=== PATIENT | female | born 1980 | race African-American/Black ===

== ENCOUNTER 2019-05-22 13:50 | Inpatient (IN) | payer MEDICAID, OTHER ==
[~2019-05-22] VITALS: Ht 167.6 cm; Wt 62.3 kg
[~2019-05-22 13:50] MED LIST: NO MEDS
[2019-05-22] MEDS ORDERED: LORazepam 2 MG/ML VIAL IM ONE (15:00)
[2019-05-22] MEDS ORDERED: HALOPERIDOL LACTATE 5 MG/ML VIAL IM ONE (15:00)
[2019-05-22 16:33] LABS: BASOPHILS % (AUTO) 0.8 % (0.0-2.0); EOSINOPHILS % (AUTO) 1.7 % (1.0-6.0); HEMATOCRIT 27.7 % (36-46); HEMOGLOBIN 8.3 g/dL (12.0-16.0); LYMPHOCYTES # (AUTO) 1.7 K/uL (1.0-4.8); LYMPHOCYTES % (AUTO) 30.2 % (22.0-44.0); MEAN CORPUSCULAR HEMOGLOBIN 20.8 pg (26.0-34.0); MEAN CORPUSCULAR VOLUME 69 fL (80-100); MONOCYTES # (AUTO) 0.3 K/uL (0.1-1.0); MONOCYTES % (AUTO) 5.7 % (2.0-9.0); NEUTROPHILS # (AUTO) 3.6 K/uL (1.8-7.7); NEUTROPHILS % (AUTO) 61.6 % (40.0-70.0); PLATELET COUNT (AUTO) 275 K/uL (150-450); RED BLOOD CELL COUNT(AUTO) 4.01 MIL/uL (4.00-5.20); RED CELL DISTRIBUTION WIDTH 22.8 % (11.5-14.5)
[2019-05-22 16:34] LABS: ANION GAP 15 mmol/L (8-16); CALCIUM, TOTAL 8.9 mg/dL (8.8-10.5); CARBON DIOXIDE 21 mmol/L (22-29); CHLORIDE 109 mmol/L (98-107); CREATININE 0.75 mg/dL (0.60-1.30); GLOMERULAR FILTR. RATE CALC > 60 mL/min (>60); GLUCOSE,RANDOM 93 mg/dL (70-110); POTASSIUM 3.2 mmol/L (3.5-5.1); SODIUM SERUM 145 mmol/L (136-145); UREA NITROGEN, BLOOD 9 mg/dL (7-18)
[2019-05-22 16:39] LABS: ALANINE AMINOTRANSFERASE 10 U/L (12-78); ALBUMIN 3.8 g/dL (3.4-5.0); ALKALINE PHOSPHATASE 56 U/L (46-116); ASPARTATE AMINOTRANSFERASE 15 U/L (15-37); BILIRUBIN,TOTAL 0.3 mg/dL (0.1-1.0); TOTAL PROTEIN, SERUM 6.9 g/dL (6.4-8.2)
[2019-05-23] MEDS ORDERED: LORazepam 2 MG TABLET PO PRN (02:30)
[2019-05-23] MEDS ORDERED: HALOPERIDOL 5 MG TABLET PO PRN (02:30)
[2019-05-23] MEDS ORDERED: IBUPROFEN 400 MG TABLET PO PRN (07:15)
[2019-05-23] MEDS ORDERED: ONDANSETRON HCL 4 MG TABLET PO PRN (07:15)
[2019-05-23] MEDS ORDERED: ALBUTEROL SULFATE HFA 90 MCG/PUFF 8 GM INHALER IH PRN (07:15)
[2019-05-23] MEDS ORDERED: MAGNESIUM HYDROXIDE SUSPENSION 30 ML UDCUP PO PRN (07:15)
[2019-05-23] MEDS ORDERED: CloNIDine HCL 0.1 MG TABLET PO PRN (07:15)
[2019-05-23] MEDS ORDERED: MAG HYDROX/AL HYDROX/SIMETH ES 30 ML SUSPENSION UDCUP PO PRN (07:15)
[2019-05-23] MEDS ORDERED: ACETAMINOPHEN 325 MG TABLET PO PRN (07:15)
[2019-05-23] MEDS ORDERED: NICOTINE 14 MG/24 HOUR PATCH TD PRN (07:15)
[2019-05-23] MEDS ORDERED: PETROLATUM,WHITE 28 GM JELLY TP PRN (07:15)
[2019-05-23] MEDS ORDERED: LOPERAMIDE HCL 2 MG CAPSULE PO PRN (07:15)
[2019-05-23] MEDS ORDERED: GuaiFENesin/D-METHORPHAN [SUGAR-FREE] 200-20MG/10 ML SYRUP UDCUP PO PRN (07:15)
[2019-05-23] MEDS ORDERED: DOCUSATE SODIUM 100 MG CAPSULE PO PRN (07:15)
[2019-05-23 07:16] VITALS: BP 131/88
[2019-05-23 08:25] VITALS: BP 110/61
[2019-05-23] MEDS ORDERED: POTASSIUM CHLORIDE 20 MEQ ER TABLET PO ONE (09:15)
[2019-05-23 16:28] VITALS: BP 119/76
[2019-05-23] MEDS: BENZTROPINE MESYLATE 1 MG TABLET PO SCH (16:58)
[2019-05-23] MEDS: FERROUS SULFATE 325 MG EC TABLET PO SCH ×2 (16:59→21:00)
[2019-05-23] MEDS: RisperiDONE 2 MG TABLET PO SCH (16:59)
[2019-05-24 00:15] VITALS: BP 122/80
[2019-05-24] MEDS: FERROUS SULFATE 325 MG EC TABLET PO SCH ×4 (06:49→20:52)
[2019-05-24] MEDS: BENZTROPINE MESYLATE 1 MG TABLET PO SCH ×2 (08:55→16:39)
[2019-05-24] MEDS: RisperiDONE 2 MG TABLET PO SCH ×2 (08:55→16:39)
[2019-05-24 09:10] LABS: HEMOGLOBIN A1C 5.4 % (4.5-6.2)
[2019-05-24 09:20] LABS: CHOL/HDL RATIO 2.2 (3.9-5.7); POTASSIUM 4.3 mmol/L (3.5-5.1); THYROID STIMULATING HORMONE 0.59 uIU/mL (0.36-3.74)
[2019-05-24 16:26] VITALS: BP 142/90
[2019-05-24] MEDS: ZOLPIDEM TARTRATE 10 MG TABLET PO PRN (20:53)
[2019-05-25] MEDS: FERROUS SULFATE 325 MG EC TABLET PO SCH ×4 (07:00→20:58)
[2019-05-25] MEDS: BENZTROPINE MESYLATE 1 MG TABLET PO SCH ×2 (09:00→17:00)
[2019-05-25] MEDS: RisperiDONE 2 MG TABLET PO SCH ×2 (09:00→17:00)
[2019-05-25 16:12] VITALS: BP 135/84
[2019-05-25] MEDS: ZOLPIDEM TARTRATE 10 MG TABLET PO PRN (20:44)
[2019-05-26 01:19] VITALS: BP 128/81
[2019-05-26] MEDS: FERROUS SULFATE 325 MG EC TABLET PO SCH ×2 (07:12→12:00)
[2019-05-26 08:31] VITALS: BP 123/74
[2019-05-26] MEDS: RisperiDONE 2 MG TABLET PO SCH (09:00)
[2019-05-26] MEDS: BENZTROPINE MESYLATE 1 MG TABLET PO SCH (09:00)
== END 2019-05-26 14:18 | disposition left against medical advice (07) | DRG 750 ==
LOC: EMS 13:51 → B3A 05-23 03:52 → EMS 05-23 04:12 → B3A 05-26 00:57
PROVIDERS: ADMIT Psychiatry & Neurology Child & Adolescent Psychiatry; ATTEND Psychiatry & Neurology Child & Adolescent Psychiatry
DX: F20.0 Paranoid schizophrenia (principal); D64.9 Anemia, unspecified; E87.6 Hypokalemia; F41.9 Anxiety disorder, unspecified; F17.210 Nicotine dependence, cigarettes, uncomplicated; F10.10 Alcohol abuse, uncomplicated; R10.13 Epigastric pain; F19.10 Other psychoactive substance abuse, uncomplicated; Z53.21 Procedure and treatment not carried out due to patient leaving prior to being seen by health care provider; Z71.6 Tobacco abuse counseling; Y90.9 Presence of alcohol in blood, level not specified
CPT/HCPCS: 83036; 84132; 84443; 96372; 99291; G0480; J1630; J2060

== ENCOUNTER 2019-08-09 17:00 | Inpatient (IN) | payer MEDICAID ==
[~2019-08-09] VITALS: Ht 162.6 cm; Wt 64.9 kg
[2019-08-09] MEDS ORDERED: LORazepam 2 MG TABLET PO PRN (19:00)
[2019-08-09] MEDS ORDERED: ZOLPIDEM TARTRATE 10 MG TABLET PO PRN (19:00)
[2019-08-09] MEDS ORDERED: HALOPERIDOL 5 MG TABLET PO PRN (19:00)
[2019-08-09] MEDS ORDERED: OMEPRAZOLE 20 MG CAPSULE PO PRN (20:45)
[2019-08-09] MEDS ORDERED: ONDANSETRON HCL 4 MG TABLET PO PRN (20:45)
[2019-08-09] MEDS ORDERED: DOCUSATE SODIUM 100 MG CAPSULE PO PRN (20:45)
[2019-08-09] MEDS ORDERED: BENZOCAINE/MENTHOL LOZENGE MM PRN (20:45)
[2019-08-09] MEDS ORDERED: BACITRACIN 28.4 GM OINTMENT TP PRN (20:45)
[2019-08-09] MEDS ORDERED: CloNIDine HCL 0.1 MG TABLET PO PRN (20:45)
[2019-08-09] MEDS ORDERED: ALBUTEROL SULFATE HFA 90 MCG/PUFF 8 GM INHALER IH PRN (20:45)
[2019-08-09] MEDS ORDERED: PETROLATUM,WHITE 28 GM JELLY TP PRN (20:45)
[2019-08-09] MEDS ORDERED: MAGNESIUM HYDROXIDE SUSPENSION 30 ML UDCUP PO PRN (20:45)
[2019-08-09] MEDS ORDERED: IBUPROFEN 600 MG TABLET PO PRN (20:45)
[2019-08-09] MEDS ORDERED: LOPERAMIDE HCL 2 MG CAPSULE PO PRN (20:45)
[2019-08-09] MEDS ORDERED: ACETAMINOPHEN 325 MG TABLET PO PRN (20:45)
[2019-08-09] MEDS ORDERED: MAG HYDROX/AL HYDROX/SIMETH ES 30 ML SUSPENSION UDCUP PO PRN (20:45)
[2019-08-09] MEDS ORDERED: INFLUENZA VIRUS VACCINE QVS 2019-20 (3YR+)/PF 60 MCG/0.5 ML SYRINGE IM ONE (21:00)
[2019-08-10 08:14] VITALS: BP 145/79
[2019-08-10] MEDS: BENZTROPINE MESYLATE 1 MG TABLET PO SCH ×2 (08:18→16:45)
[2019-08-10] MEDS: RisperiDONE 2 MG TABLET PO SCH ×2 (08:19→16:45)
[2019-08-11 08:27] VITALS: BP 129/83
[2019-08-11] MEDS: RisperiDONE 2 MG TABLET PO SCH ×2 (09:00→17:00)
[2019-08-11] MEDS: BENZTROPINE MESYLATE 1 MG TABLET PO SCH ×2 (09:00→17:00)
[2019-08-11 16:45] VITALS: BP 104/70
[2019-08-12] MEDS: RisperiDONE 2 MG TABLET PO SCH ×3 (09:00→17:00)
[2019-08-12] MEDS: BENZTROPINE MESYLATE 1 MG TABLET PO SCH ×3 (09:00→17:00)
[2019-08-13 06:33] VITALS: BP 107/69
[2019-08-13] MEDS: BENZTROPINE MESYLATE 1 MG TABLET PO SCH ×2 (09:00→16:47)
[2019-08-13] MEDS: RisperiDONE 2 MG TABLET PO SCH ×2 (09:00→16:47)
[2019-08-13 09:08] VITALS: BP 109/67
[2019-08-13 16:32] VITALS: BP 130/75
[2019-08-14] MEDS: RisperiDONE 2 MG TABLET PO SCH ×2 (08:06→16:30)
[2019-08-14] MEDS: BENZTROPINE MESYLATE 1 MG TABLET PO SCH ×2 (08:06→16:30)
[2019-08-14 16:21] VITALS: BP 141/87
[2019-08-15] MEDS: BENZTROPINE MESYLATE 1 MG TABLET PO SCH ×2 (09:00→17:00)
[2019-08-15] MEDS: RisperiDONE 2 MG TABLET PO SCH ×2 (09:00→17:00)
[2019-08-15 16:32] VITALS: BP 146/84
[2019-08-16 06:13] VITALS: BP 131/72
[2019-08-16] MEDS: BENZTROPINE MESYLATE 1 MG TABLET PO SCH ×2 (08:29→17:00)
[2019-08-16] MEDS: RisperiDONE 2 MG TABLET PO SCH ×2 (08:29→17:00)
[2019-08-16 17:01] VITALS: BP 122/77
[2019-08-17 08:16] VITALS: BP 137/90
[2019-08-17] MEDS: RisperiDONE 2 MG TABLET PO SCH (08:17)
[2019-08-17] MEDS: BENZTROPINE MESYLATE 1 MG TABLET PO SCH (08:17)
[2019-08-17] MEDS ORDERED: BENZ1TAB10 PO (09:43)
[2019-08-17] MEDS ORDERED: RISP2 PO (09:44)
== END 2019-08-17 11:40 | disposition home or self-care (01) | DRG 750 ==
LOC: B3A 18:53
PROVIDERS: ADMIT Psychiatry & Neurology Psychiatry; ATTEND Psychiatry & Neurology Psychiatry
DX: F20.0 Paranoid schizophrenia (principal); Z59.0 Homelessness; F17.200 Nicotine dependence, unspecified, uncomplicated; G47.00 Insomnia, unspecified; K59.00 Constipation, unspecified; Z53.20 Procedure and treatment not carried out because of patient's decision for unspecified reasons; R10.13 Epigastric pain; Z56.0 Unemployment, unspecified

== ENCOUNTER 2020-06-18 11:07 | Emergency (ER) | payer MEDICAID ==
[~2020-06-18] VITALS: Ht 167.6 cm; Wt 63.6 kg
[~2020-06-18 11:07] MED LIST changes: +BENZ1TAB10 PO; -NO MEDS; +RISP2TAB23 PO
[2020-06-18] MEDS ORDERED: DiphenhydrAMINE HCL 50 MG/ML VIAL IM ONE (12:30)
[2020-06-18] MEDS ORDERED: LORazepam 2 MG/ML VIAL IM ONE (12:30)
[2020-06-18] MEDS ORDERED: HALOPERIDOL LACTATE 5 MG/ML VIAL IM ONE (12:30)
[2020-06-18 14:05] LABS: BASOPHILS % (AUTO) 0.6 % (0.0-2.0); EOSINOPHILS % (AUTO) 1.9 % (1.0-6.0); HEMATOCRIT 39.1 % (36-46); HEMOGLOBIN 12.6 g/dL (12.0-16.0); LYMPHOCYTES # (AUTO) 1.9 K/uL (1.0-4.8); LYMPHOCYTES % (AUTO) 25.5 % (22.0-44.0); MEAN CORPUSCULAR HGB CONC 32.2 G/dL (31.0-37.0); MEAN CORPUSCULAR VOLUME 84 fL (80-100); MONOCYTES # (AUTO) 0.5 K/uL (0.1-1.0); MONOCYTES % (AUTO) 7.3 % (2.0-9.0); NEUTROPHILS # (AUTO) 4.8 K/uL (1.8-7.7); NEUTROPHILS % (AUTO) 64.7 % (40.0-70.0); PLATELET COUNT (AUTO) 285 K/uL (150-450); RED BLOOD CELL COUNT(AUTO) 4.66 MIL/uL (4.00-5.20)
[2020-06-18 14:07] LABS: COVID AG,FIA SOURCE NASOPHARYNGEAL
[2020-06-18 14:10] LABS: ANION GAP 2 mmol/L (8-16); CALCIUM, TOTAL 8.8 mg/dL (8.8-10.5); CARBON DIOXIDE 30 mmol/L (22-29); CHLORIDE 108 mmol/L (98-107); CREATININE 0.96 mg/dL (0.60-1.30); GLOMERULAR FILTR. RATE CALC > 60 mL/min (>60); GLUCOSE,RANDOM 81 mg/dL (70-110); POTASSIUM 3.3 mmol/L (3.5-5.1); SODIUM SERUM 140 mmol/L (136-145); UREA NITROGEN, BLOOD 11 mg/dL (7-18)
[2020-06-18 14:28] LABS: ALANINE AMINOTRANSFERASE 18 U/L (12-78); ALBUMIN 3.6 g/dL (3.4-5.0); ALKALINE PHOSPHATASE 85 U/L (46-116); ASPARTATE AMINOTRANSFERASE 14 U/L (15-37); BILIRUBIN,TOTAL 0.2 mg/dL (0.1-1.0); HCG,QUANTITATIVE 1 mIU/mL (0-6); TOTAL PROTEIN, SERUM 6.3 g/dL (6.4-8.2)
[2020-06-18 22:48] VITALS: BP 118/64
== END 2020-06-18 22:55 | disposition home or self-care (01) ==
LOC: EMS 11:14
DX: F20.9 Schizophrenia, unspecified (principal); F15.90 Other stimulant use, unspecified, uncomplicated; F17.210 Nicotine dependence, cigarettes, uncomplicated; Z20.828 Contact with and (suspected) exposure to other viral communicable diseases
CPT/HCPCS: 36415; 80053; 84702; 85025; 87426; 96372; 99285; G0480; J1200; J1630; J2060